=== PATIENT | female | born 1970 | race Caucasian/White ===

== ENCOUNTER → 2019-01-31 | Outpatient (CLI) | payer BC ==
[2019-01-31 16:49] LABS: HEMATOCRIT 39.5 % (37.0-47.0); MEAN CELL VOLUME 87 fl (78-100); MEAN CORPUSCULAR HEMOGLOBIN 29 pg (27-31); MEAN CORPUSCULAR HGB CONC 33 g/dL (33-37); MEAN PLATELET VOLUME 9.5 fl (7.4-10.4); PLATELET COUNT 277 K/mm3 (130-400); RED BLOOD COUNT 4.55 M/mm3 (4.10-5.30); RED CELL DISTRIBUTION WIDTH 12.9 % (11.5-14.5); WHITE BLOOD COUNT 10.9 K/mm3 (4.8-10.8)
[2019-01-31 16:58] LABS: ALBUMIN 4.3 g/dL (3.5-5.0)
[2019-01-31 16:59] LABS: POTASSIUM 3.8 mmol/L (3.5-5.1)
[2019-01-31 17:00] LABS: CALCIUM 9.2 mg/dL (8.3-10.5)
[2019-01-31 17:01] LABS: TOTAL PROTEIN 7.5 g/dL (6.4-8.3)
[2019-01-31 17:02] LABS: LYMPHOCYTE 10 % (20-51); MONOCYTE 3 % (3-10); NEUTROPHILS 85 % (42-75)
[2019-01-31 17:03] LABS: TOTAL BILIRUBIN 0.2 mg/dL (0.2-1.2)
[2019-01-31 17:06] LABS: URINE APPEARANCE HAZY; URINE BILIRUBIN NEGATIVE (NEGATIVE); URINE BLOOD TRACE (NEGATIVE); URINE COLOR YELLOW; URINE GLUCOSE NEGATIVE (NEGATIVE); URINE KETONE NEGATIVE (NEGATIVE); URINE LEUKOCYTE ESTERASE NEGATIVE (NEGATIVE); URINE NITRATE NEGATIVE (NEGATIVE); URINE PROTEIN(semi-quant) TRACE mg/dL (NEGATIVE); URINE UROBILINOGEN NORMAL (NORMAL)
== END ==
LOC: LAB 16:36
PROVIDERS: Nurse Practitioner
DX: R10.9 Unspecified abdominal pain (principal)

== ENCOUNTER 2024-01-07 16:59 | Emergency (ER) | payer BC ==
[~2024-01-07] VITALS: Ht 177.8 cm; Wt 70.5 kg
[2024-01-07 17:11] VITALS: BP 138/95
== END 2024-01-07 18:08 | disposition home or self-care (01) ==
LOC: ED 16:59
DX: S92.352A Displaced fracture of fifth metatarsal bone, left foot, initial encounter for closed fracture (principal); W11.XXXA Fall on and from ladder, initial encounter